=== PATIENT | female | born 1995 ===

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

== ENCOUNTER → 2017-04-01 | Outpatient (CLI) | payer OTHER ==
[~2017-04-01] MED LIST changes: -TRAZ-119 PO; +TRAZ1TAB16 PO
== END | disposition home or self-care (01) ==
LOC: C.LABMFLN 09:15
PROVIDERS: ATTEND Internal Medicine Endocrinology, Diabetes & Metabolism
DX: E25.0 Congenital adrenogenital disorders associated with enzyme deficiency (principal)

== ENCOUNTER → 2018-01-12 | Outpatient (CLI) | payer OTHER ==
[~2018-01-12] MED LIST changes: +TRAZ-119 PO; -TRAZ1TAB16 PO
== END | disposition home or self-care (01) ==
LOC: C.LABMFLN 09:52
PROVIDERS: ATTEND Internal Medicine Endocrinology, Diabetes & Metabolism
DX: E25.0 Congenital adrenogenital disorders associated with enzyme deficiency (principal)